=== PATIENT | male | born 1950 | race Caucasian/White ===

== ENCOUNTER → 2018-11-09 | Outpatient (CLI) | payer MEDICARE, OTHER ==
[~2018-11-09] MED LIST: LISINOPRIL PO; PAXIL 20MG20 MG PO; [UNRECOGNIZED DRUG - OTHER]
== END ==
LOC: COL.RAD 13:08
DX: I66.02 Occlusion and stenosis of left middle cerebral artery (principal); G93.89 Other specified disorders of brain; R44.1 Visual hallucinations
CPT/HCPCS: A9585